=== PATIENT | male | born 1980 | race Caucasian/White ===

== ENCOUNTER → 2022-01-05 | Outpatient (CLI) | payer OTHER | LOC: M CLY 11:14 | PROVIDERS: ATTEND Nurse Practitioner Family | DX: M54.2 Cervicalgia (principal) ==

== ENCOUNTER → 2022-01-05 | Outpatient (CLI) | payer OTHER | LOC: M CLY 11:26 | PROVIDERS: ATTEND Nurse Practitioner Family | DX: Z53.9 Procedure and treatment not carried out, unspecified reason (principal) ==

== ENCOUNTER → 2022-01-05 | Outpatient (CLI) | payer OTHER ==
[2022-01-05 16:13] LABS: HEMATOCRIT 45.3 % (42.0-52.0); HEMOGLOBIN 15.7 g/dl (13.5-17.5); MEAN CORPUSCULAR HGB CONC 34.7 g/dl (32.0-36.5); MEAN CORPUSCULAR VOLUME 86.5 fl (80.0-96.0); PLATELET COUNT, AUTOMATED 240 10^3/uL (150-450); RED BLOOD COUNT 5.24 10^6/uL (4.30-6.10); WHITE BLOOD COUNT 5.2 10^3/uL (4.0-10.0)
[2022-01-05 16:34] LABS: ALBUMIN 4.4 GM/DL (3.2-5.2); ALT/SGPT 31 U/L (12-78); BILIRUBIN,TOTAL 0.5 MG/DL (0.2-1.0); BLOOD UREA NITROGEN 13 MG/DL (7-18); CALCIUM LEVEL 9.3 MG/DL (8.5-10.1); CARBON DIOXIDE LEVEL 33 MEQ/L (21-32); CHLORIDE LEVEL 104 MEQ/L (98-107); CHOLESTEROL LEVEL 151 MG/DL (<200); CHOLESTEROL RISK RATIO 2.649 (<5); CREATININE FOR GFR 0.98 MG/DL (0.70-1.30); GLOMERULAR FILTRATION RATE > 60.0 (>60); GLUCOSE, FASTING 91 MG/DL (70-100); HDL CHOLESTEROL 57 MG/DL (>40); LDL CHOLESTEROL 78 MG/DL (<100); NON-HDL-C 94 MG/DL; POTASSIUM SERUM 4.5 MEQ/L (3.5-5.1); SODIUM LEVEL 139 MEQ/L (136-145); TOTAL PROTEIN 7.7 GM/DL (6.4-8.2); TRIGLYCERIDES LEVEL 79 MG/DL (<150)
[2022-01-05 16:46] LABS: HEMOGLOBIN A1c 5.4 %
== END ==
LOC: M CLY 10:43 → M LABDRAWC 10:45
PROVIDERS: ATTEND Nurse Practitioner Family
DX: M54.2 Cervicalgia (principal)

== ENCOUNTER → 2022-01-19 | Outpatient (CLI) | payer OTHER | LOC: M SOG 08:09 | PROVIDERS: ATTEND Physician Assistant | DX: M79.641 Pain in right hand (principal); M79.642 Pain in left hand ==

== ENCOUNTER → 2022-02-07 | Outpatient (CLI) | payer OTHER ==
[~2022-02-07] MED LIST: ZYRTTAB8 PO
== END ==
LOC: M CLY 11:21
PROVIDERS: ATTEND Physician Assistant
DX: N20.0 Calculus of kidney (principal)

== ENCOUNTER → 2022-02-17 | Outpatient (CLI) | payer OTHER | LOC: M LABSMTC 11:24 | PROVIDERS: ATTEND Anesthesiology | DX: Z01.812 Encounter for preprocedural laboratory examination (principal); Z20.822 Contact with and (suspected) exposure to COVID-19 ==

== ENCOUNTER → 2022-02-23 | Outpatient (CLI) | payer OTHER | LOC: M LABSMTC 11:26 | PROVIDERS: ATTEND Anesthesiology | DX: Z01.818 Encounter for other preprocedural examination (principal); Z11.52 Encounter for screening for COVID-19 ==

== ENCOUNTER 2022-02-24 06:09 | Day surgery (SDC) | payer OTHER ==
[~2022-02-24] VITALS: Ht 149.9 cm; Wt 78.5 kg
[~2022-02-24 06:09] MED LIST changes: +LIDOCAINE W/EPINEPHRINE 1% 20ML VIAL XX ONE; +SODIUM BICARBONATE 8.4% INJ 50MEQ 50 ML VIAL XX ONE
[2022-02-24] MEDS ORDERED: BACITRACIN OINTMENT 30GM TUBE As Ordered ONE (07:11)
[2022-02-24 07:55] VITALS: BP 151/76
== END 2022-02-24 08:15 | disposition home or self-care (01) ==
LOC: M SDC 06:09
PROVIDERS: ATTEND Orthopaedic Surgery Hand Surgery
DX: M65.331 Trigger finger, right middle finger (principal); Z88.1 Allergy status to other antibiotic agents; Z91.018 Allergy to other foods

== ENCOUNTER → 2022-03-30 | Outpatient (CLI) | payer OTHER ==
[~2022-03-30] MED LIST changes: -LIDOCAINE W/EPINEPHRINE 1% 20ML VIAL XX ONE; -SODIUM BICARBONATE 8.4% INJ 50MEQ 50 ML VIAL XX ONE
== END ==
LOC: M PLAIMG 12:25
PROVIDERS: ATTEND Orthopaedic Surgery
DX: M54.2 Cervicalgia (principal)

== ENCOUNTER → 2022-04-13 | Outpatient (CLI) | payer OTHER ==
[2022-04-13 15:45] LABS: BLOOD UREA NITROGEN 15 MG/DL (7-18); CREATININE FOR GFR 0.98 MG/DL (0.70-1.30); GLOMERULAR FILTRATION RATE > 60.0 (>60)
== END ==
LOC: M LAB 14:57
PROVIDERS: ATTEND Orthopaedic Surgery
DX: G95.89 Other specified diseases of spinal cord (principal)

== ENCOUNTER → 2022-05-03 | Outpatient (REF) | payer OTHER | LOC: M SMT 11:10 | PROVIDERS: ATTEND Urology | DX: Z30.2 Encounter for sterilization (principal) ==

== ENCOUNTER → 2022-06-14 | Outpatient (REF) | payer OTHER | LOC: M SMT 16:41 | PROVIDERS: ATTEND Physician Assistant | DX: Z87.442 Personal history of urinary calculi (principal) ==

== ENCOUNTER → 2022-06-20 | Outpatient (CLI) | payer OTHER ==
[~2022-06-20] MED LIST changes: +PROHANCE 279.3MG/ML 15ML VIAL As Ordered ONE
== END ==
LOC: M RAD 12:42
PROVIDERS: ATTEND Orthopaedic Surgery
DX: G95.89 Other specified diseases of spinal cord (principal); M50.30 Other cervical disc degeneration, unspecified cervical region; M50.20 Other cervical disc displacement, unspecified cervical region
CPT/HCPCS: 72156; A9576

== ENCOUNTER → 2022-06-26 | Outpatient (REF) | payer OTHER ==
[~2022-06-26] MED LIST changes: -PROHANCE 279.3MG/ML 15ML VIAL As Ordered ONE
[2022-06-26 17:23] LABS: BASO % 0.4 % (0.0-1.0); EOS # 0.1 10^3/uL (0.0-0.5); EOS % 0.9 % (0.0-3.0); HEMOGLOBIN 14.7 g/dl (13.5-17.5); LYMPH % 14.5 % (24.0-44.0); MEAN CORPUSCULAR HEMOGLOBIN 30.4 pg (27.0-33.0); MEAN CORPUSCULAR HGB CONC 34.2 g/dl (32.0-36.5); MONO # 0.9 10^3/uL (0.0-0.8); MONO % 12.6 % (2.0-8.0); NEUTROPHILS # 4.9 10^3/uL (1.5-8.5); NEUTROPHILS % 71.3 % (36.0-66.0); PLATELET COUNT, AUTOMATED 212 10^3/uL (150-450); RED BLOOD COUNT 4.83 10^6/uL (4.30-6.10); WHITE BLOOD COUNT 6.9 10^3/uL (4.0-10.0)
[2022-06-26 17:35] LABS: ALBUMIN 4.1 GM/DL (3.2-5.2); ALT/SGPT 56 U/L (12-78); BILIRUBIN,TOTAL 0.7 MG/DL (0.2-1.0); BLOOD UREA NITROGEN 12 MG/DL (7-18); CALCIUM LEVEL 9.4 MG/DL (8.5-10.1); CARBON DIOXIDE LEVEL 25 MEQ/L (21-32); CHLORIDE LEVEL 105 MEQ/L (98-107); CREATININE FOR GFR 0.95 MG/DL (0.70-1.30); GLOMERULAR FILTRATION RATE > 60.0 (>60); GLUCOSE, FASTING 97 MG/DL (70-100); POTASSIUM SERUM 4.1 MEQ/L (3.5-5.1); SODIUM LEVEL 136 MEQ/L (136-145); TOTAL PROTEIN 7.5 GM/DL (6.4-8.2)
== END ==
LOC: M SFHCCLAY 10:07
PROVIDERS: ATTEND Nurse Practitioner Family
DX: L02.31 Cutaneous abscess of buttock (principal)

== ENCOUNTER → 2022-07-04 | Outpatient (REF) | payer OTHER ==
[2022-07-04 13:34] LABS: SEMEN APPEARANCE OPAQUE (OPAQUE); SEMEN VISCOSITY LIQUID (LIQUID); SEMEN VOLUME 1.5 ml (2.0-5.0)
[2022-07-04 13:35] LABS: WBC CONCENTRATION >1 M/ml (<=1 M/ml)
== END ==
LOC: M SMT 12:53
PROVIDERS: ATTEND Urology
DX: Z30.8 Encounter for other contraceptive management (principal)

== ENCOUNTER → 2022-07-17 | Outpatient (REF) | payer OTHER ==
[2022-07-17 16:15] LABS: APPEARANCE, URINE MANUAL HAZY (CLEAR); COLOR, URINE MANUAL COLORLESS (YELLOW)
[2022-07-17 16:16] LABS: BILIRUBIN, URINE MANUAL NEGATIVE (NEGATIVE); BLOOD URINE MANUAL POSITIVE (NEGATIVE); GLUCOSE, URINE (UA) MANUAL NEGATIVE (NEGATIVE); KETONE, URINE MANUAL NEGATIVE (NEGATIVE); LEUKOCYTE ESTERASE, URINE MAN POSITIVE (NEGATIVE); NITRITE, URINE MANUAL NEGATIVE (NEGATIVE); PROTEIN, URINE MANUAL TRACE mg/dL (NEGATIVE); UROBILINOGEN, URINE MANUAL NORMAL (NORMAL)
[2022-07-17 17:05] LABS: WBC, URINE TNTC /hpf (0-3)
[2022-07-17 17:06] LABS: BACTERIA, URINE LARGE AMOUNT; HYALINE CAST, URINE NONE SEEN /lpf (0-1); SQUAMOUS EPITHELIAL CELL URINE NONE SEEN /hpf (SMALL AMT)
== END ==
LOC: M SMT 15:16
PROVIDERS: ATTEND Physician Assistant
DX: R30.0 Dysuria (principal)

== ENCOUNTER → 2022-07-27 | Outpatient (CLI) | payer OTHER ==
[~2022-07-27] MED LIST changes: +ISOVUE-370 76% 100ML VIAL As Ordered ONE
== END ==
LOC: M RAD 12:35
PROVIDERS: ATTEND Nurse Practitioner Family
DX: R91.1 Solitary pulmonary nodule (principal)
CPT/HCPCS: 71260; Q9967

== ENCOUNTER → 2022-08-17 | Outpatient (CLI) | payer OTHER ==
[~2022-08-17] MED LIST changes: -ISOVUE-370 76% 100ML VIAL As Ordered ONE
== END ==
LOC: M SOG 15:13
PROVIDERS: ATTEND Orthopaedic Surgery
DX: M54.50 Low back pain, unspecified (principal)

== ENCOUNTER → 2022-08-29 | Outpatient (CLI) | payer OTHER ==
[~2022-08-29] MED LIST changes: +ISOVUE-370 76% 100ML VIAL As Ordered ONE
== END ==
LOC: M RAD 15:06
PROVIDERS: ATTEND Physician Assistant
DX: N39.0 Urinary tract infection, site not specified (principal)
CPT/HCPCS: 74178; Q9967

== ENCOUNTER → 2022-09-07 | Outpatient (CLI) | payer OTHER ==
[~2022-09-07] MED LIST changes: -ISOVUE-370 76% 100ML VIAL As Ordered ONE
== END ==
LOC: M PLAIMG 10:34
PROVIDERS: ATTEND Orthopaedic Surgery
DX: M47.816 Spondylosis without myelopathy or radiculopathy, lumbar region (principal)

== ENCOUNTER → 2022-11-08 | Outpatient (REF) | payer OTHER ==
[2022-11-08 17:24] LABS: HEMATOCRIT 42.3 % (42.0-52.0); HEMOGLOBIN 14.3 g/dl (13.5-17.5); MEAN CORPUSCULAR HGB CONC 33.8 g/dl (32.0-36.5); MEAN CORPUSCULAR VOLUME 88.7 fl (80.0-96.0); PLATELET COUNT, AUTOMATED 314 10^3/uL (150-450); RED BLOOD COUNT 4.77 10^6/uL (4.30-6.10); WHITE BLOOD COUNT 12.7 10^3/uL (4.0-10.0)
[2022-11-08 17:56] LABS: ALBUMIN 4.1 G/DL (3.2-5.2); ALKALINE PHOSPHATASE 69 U/L (46-116); ALT/SGPT 28 U/L (7.0-40); AST/SGOT 17 U/L (<34); BILIRUBIN,TOTAL 0.7 MG/DL (0.3-1.2); BLOOD UREA NITROGEN 16 MG/DL (9-23); CALCIUM LEVEL 9.3 MG/DL (8.5-10.1); CARBON DIOXIDE LEVEL 30 MMOL/L (20-31); CHLORIDE LEVEL 102 MMOL/L (98-107); CHOLESTEROL LEVEL 146 MG/DL (<200); GLOMERULAR FILTRATION RATE > 60.0 (>60); GLUCOSE, FASTING 90 MG/DL (60-100); HDL CHOLESTEROL 45.5 MG/DL (>40); LDL CHOLESTEROL 80.9 MG/DL (<100); NON-HDL-C 101 MG/DL; POTASSIUM SERUM 4.3 MMOL/L (3.5-5.1); SODIUM LEVEL 138 MMOL/L (136-145); TRIGLYCERIDES LEVEL 98 MG/DL (<150)
[2022-11-08 18:57] LABS: APPEARANCE, URINE MANUAL CLEAR (CLEAR); BILIRUBIN, URINE MANUAL NEGATIVE (NEGATIVE); BLOOD URINE MANUAL NEGATIVE (NEGATIVE); COLOR, URINE MANUAL COLORLESS (YELLOW); GLUCOSE, URINE (UA) MANUAL NEGATIVE (NEGATIVE); KETONE, URINE MANUAL NEGATIVE (NEGATIVE); LEUKOCYTE ESTERASE, URINE MAN POSITIVE (NEGATIVE); NITRITE, URINE MANUAL NEGATIVE (NEGATIVE); PROTEIN, URINE MANUAL NEGATIVE (NEGATIVE); SPECIFIC GRAVITY,URINE MANUAL 1.005 (1.002-1.035); UROBILINOGEN, URINE MANUAL NORMAL (NORMAL)
[2022-11-08 19:15] LABS: BACTERIA, URINE NONE SEEN; HYALINE CAST, URINE NONE SEEN /lpf (0-1); RBC, URINE NONE SEEN /hpf (0-3); SQUAMOUS EPITHELIAL CELL URINE NONE SEEN /hpf (SMALL AMT); WBC, URINE 0-1 /hpf (0-3)
== END ==
LOC: M SFHCCLAY 11:12
PROVIDERS: ATTEND Physician Assistant
DX: R30.0 Dysuria (principal)

== ENCOUNTER → 2023-01-11 | Outpatient (CLI) | payer OTHER | LOC: M PLAIMG 13:26 | PROVIDERS: ATTEND Internal Medicine Pulmonary Disease | DX: R91.8 Other nonspecific abnormal finding of lung field (principal) ==

== ENCOUNTER → 2023-01-29 | Outpatient (REF) | payer OTHER ==
[2023-01-29 21:04] LABS: APPEARANCE, URINE CLEAR (CLEAR); BACTERIA, URINE AUTO 1+ (NEGATIVE); BILIRUBIN, URINE AUTO NEGATIVE (NEGATIVE); BLOOD, URINE BLOOD 1+ (NEGATIVE); COLOR, URINE STRAW (YELLOW); GLUCOSE, URINE (UA) AUTO NEGATIVE (NEGATIVE); KETONE, URINE AUTO NEGATIVE (NEGATIVE); LEUKOCYTE ESTERASE, URINE AUTO 2+ (NEGATIVE); NITRITE, URINE AUTO NEGATIVE (NEGATIVE); PROTEIN, URINE AUTO NEGATIVE (NEGATIVE); RBC, URINE AUTO 2 /HPF (0-3); SPECIFIC GRAVITY URINE AUTO 1.005 (1.002-1.035); SQUAMOUS EPITHELIAL CELL UR AU 0 /HPF (0-6); UROBILINOGEN, URINE AUTO 0.2 mg/dL (0.0-2.0); WBC, URINE AUTO 5 /HPF (0-3)
== END ==
LOC: M SMT 18:09
PROVIDERS: ATTEND Physician Assistant
DX: R30.0 Dysuria (principal)

== ENCOUNTER → 2023-03-09 | Outpatient (REF) | payer OTHER ==
[2023-03-09 18:23] LABS: APPEARANCE, URINE CLEAR (CLEAR); BACTERIA, URINE AUTO NEGATIVE (NEGATIVE); BILIRUBIN, URINE AUTO NEGATIVE (NEGATIVE); BLOOD, URINE BLOOD NEGATIVE (NEGATIVE); COLOR, URINE STRAW (YELLOW); GLUCOSE, URINE (UA) AUTO NEGATIVE (NEGATIVE); KETONE, URINE AUTO NEGATIVE (NEGATIVE); LEUKOCYTE ESTERASE, URINE AUTO TRACE (NEGATIVE); NITRITE, URINE AUTO NEGATIVE (NEGATIVE); PROTEIN, URINE AUTO NEGATIVE (NEGATIVE); RBC, URINE AUTO 0 /HPF (0-3); SPECIFIC GRAVITY URINE AUTO 1.005 (1.002-1.035); SQUAMOUS EPITHELIAL CELL UR AU 0 /HPF (0-6); UROBILINOGEN, URINE AUTO 0.2 mg/dL (0.0-2.0); WBC, URINE AUTO 2 /HPF (0-3)
== END ==
LOC: M SMT 17:16
PROVIDERS: ATTEND Urology
DX: N39.0 Urinary tract infection, site not specified (principal)

== ENCOUNTER → 2023-03-15 | Outpatient (CLI) | payer OTHER | LOC: M PLAIMG 14:15 | PROVIDERS: ATTEND Orthopaedic Surgery | DX: M54.12 Radiculopathy, cervical region (principal); G95.89 Other specified diseases of spinal cord ==

== ENCOUNTER → 2023-04-27 | Outpatient (REF) | payer OTHER ==
[2023-04-27 18:16] LABS: HEMOGLOBIN A1c 5.2 % (4.0-6.0)
[2023-04-27 18:20] LABS: FOLATE 16.1 NG/ML (>5.4); THYROID STIMULATING HORMONE 1.862 uIU/ML (0.55-4.78)
== END ==
LOC: M SFHCCLAY 09:47
PROVIDERS: ATTEND Physician Assistant Medical
DX: R20.2 Paresthesia of skin (principal)

== ENCOUNTER → 2023-08-07 | Outpatient (CLI) | payer OTHER | LOC: M CLY 12:02 | PROVIDERS: ATTEND Family Medicine | DX: R10.9 Unspecified abdominal pain (principal) ==

== ENCOUNTER → 2023-08-07 | Outpatient (REF) | payer OTHER ==
[2023-08-07 18:52] LABS: HEMATOCRIT 42.5 % (42.0-52.0); HEMOGLOBIN 14.6 g/dl (13.5-17.5); MEAN CORPUSCULAR HEMOGLOBIN 30.4 pg (27.0-33.0); MEAN CORPUSCULAR HGB CONC 34.4 g/dl (32.0-36.5); MEAN CORPUSCULAR VOLUME 88.5 fl (80.0-96.0); PLATELET COUNT, AUTOMATED 254 10^3/uL (150-450); WHITE BLOOD COUNT 8.5 10^3/uL (4.0-10.0)
[2023-08-07 19:20] LABS: LIPASE 43 U/L (12-53)
[2023-08-07 19:21] LABS: AMYLASE 53 U/L (30-118)
[2023-08-07 19:22] LABS: ALBUMIN 4.4 G/DL (3.2-5.2); ALKALINE PHOSPHATASE 70 U/L (46-116); ALT/SGPT 38 U/L (7.0-40); AST/SGOT 21 U/L (<34); BILIRUBIN,TOTAL 0.6 MG/DL (0.3-1.2); BLOOD UREA NITROGEN 15 MG/DL (9-23); CALCIUM LEVEL 9.3 MG/DL (8.5-10.1); CARBON DIOXIDE LEVEL 28 MMOL/L (20-31); CHLORIDE LEVEL 105 MMOL/L (98-107); CREATININE FOR GFR 0.93 MG/DL (0.70-1.30); GLOMERULAR FILTRATION RATE > 60.0 (>60); GLUCOSE, FASTING 81 MG/DL (60-100); POTASSIUM SERUM 4.6 MMOL/L (3.5-5.1); SODIUM LEVEL 142 MMOL/L (136-145); TOTAL PROTEIN 7.4 G/DL (5.7-8.2)
== END ==
LOC: M SFHCCLAY 11:54
PROVIDERS: ATTEND Family Medicine
DX: R10.13 Epigastric pain (principal)

== ENCOUNTER → 2023-08-24 | Outpatient (CLI) | payer OTHER | LOC: M CLY 10:31 | PROVIDERS: ATTEND Internal Medicine Pulmonary Disease | DX: R91.8 Other nonspecific abnormal finding of lung field (principal) ==

== ENCOUNTER → 2023-09-18 | Outpatient (CLI) | payer OTHER ==
[~2023-09-18] MED LIST changes: +OMEP-173 PO
== END ==
LOC: M CARPUL 10:32
PROVIDERS: ATTEND Internal Medicine Pulmonary Disease
DX: R06.00 Dyspnea, unspecified (principal)

== ENCOUNTER 2023-11-27 12:47 | Day surgery (SDC) | payer OTHER ==
[~2023-11-27] VITALS: Ht 149.9 cm; Wt 79.3 kg
[~2023-11-27 12:47] MED LIST changes: +CETI-24 PO; +NS 1,000 ML IV ONE
[2023-11-27] MEDS ORDERED: propofoL 200 MG/20 ML VIAL As Ordered ONE ×2 (14:42→14:50)
[2023-11-27] MEDS ORDERED: LIDOCAINE 2% 100MG/5ML SDV (FOR ANES.) As Ordered ONE (14:42)
[2023-11-27 15:07] VITALS: TEMP 97.7
[2023-11-27 15:13] VITALS: BP 135/89; O2SAT 98
== END 2023-11-27 15:19 | disposition home or self-care (01) ==
LOC: M OPP 12:47
PROVIDERS: ATTEND Internal Medicine Gastroenterology
DX: K21.9 Gastro-esophageal reflux disease without esophagitis (principal); R12 Heartburn; G47.30 Sleep apnea, unspecified; Z99.89 Dependence on other enabling machines and devices; Z79.52 Long term (current) use of systemic steroids; Z79.899 Other long term (current) drug therapy

== ENCOUNTER → 2024-02-05 | Outpatient (CLI) | payer OTHER ==
[~2024-02-05] MED LIST changes: -NS 1,000 ML IV ONE
== END ==
LOC: M RAD 13:04
PROVIDERS: ATTEND Internal Medicine Pulmonary Disease
DX: R94.2 Abnormal results of pulmonary function studies (principal)

== ENCOUNTER → 2024-02-07 | Outpatient (REF) | payer OTHER ==
[2024-02-07 17:13] LABS: APPEARANCE, URINE CLEAR (CLEAR); BACTERIA, URINE AUTO NEGATIVE (NEGATIVE); BILIRUBIN, URINE AUTO NEGATIVE (NEGATIVE); BLOOD, URINE BLOOD 1+ (NEGATIVE); COLOR, URINE YELLOW (YELLOW); GLUCOSE, URINE (UA) AUTO NEGATIVE (NEGATIVE); KETONE, URINE AUTO NEGATIVE (NEGATIVE); LEUKOCYTE ESTERASE, URINE AUTO NEGATIVE (NEGATIVE); MUCUS, URINE SMALL (NEGATIVE); NITRITE, URINE AUTO NEGATIVE (NEGATIVE); PROTEIN, URINE AUTO NEGATIVE (NEGATIVE); RBC, URINE AUTO 1 /HPF (0-3); SPECIFIC GRAVITY URINE AUTO 1.016 (1.002-1.035); SQUAMOUS EPITHELIAL CELL UR AU 0 /HPF (0-6); UROBILINOGEN, URINE AUTO 0.2 mg/dL (0.0-2.0); WBC, URINE AUTO 1 /HPF (0-3)
== END ==
LOC: M SFHCCLAY 12:59
PROVIDERS: ATTEND Physician Assistant
DX: R30.0 Dysuria (principal)

== ENCOUNTER → 2024-08-07 | Outpatient (CLI) | payer OTHER | LOC: M SOG 07:31 | PROVIDERS: ATTEND Orthopaedic Surgery | DX: M54.2 Cervicalgia (principal) ==

== ENCOUNTER → 2024-08-08 | Outpatient (CLI) | payer OTHER | LOC: M SOG 07:53 | PROVIDERS: ATTEND Orthopaedic Surgery | DX: M54.2 Cervicalgia (principal) ==

== ENCOUNTER → 2024-08-22 | Outpatient (CLI) | payer OTHER | LOC: M PLARAD 11:02 | PROVIDERS: ATTEND Orthopaedic Surgery | DX: G95.89 Other specified diseases of spinal cord (principal); M54.12 Radiculopathy, cervical region; M47.812 Spondylosis without myelopathy or radiculopathy, cervical region; M50.222 Other cervical disc displacement at C5-C6 level; M50.31 Other cervical disc degeneration, high cervical region; M50.321 Other cervical disc degeneration at C4-C5 level ==

== ENCOUNTER → 2024-12-23 | Outpatient (REF) | payer OTHER ==
[2024-12-23 18:05] LABS: APPEARANCE, URINE CLEAR (CLEAR); BACTERIA, URINE AUTO NEGATIVE (NEGATIVE); BILIRUBIN, URINE AUTO NEGATIVE (NEGATIVE); BLOOD, URINE BLOOD NEGATIVE (NEGATIVE); COLOR, URINE STRAW (YELLOW); GLUCOSE, URINE (UA) AUTO NEGATIVE (NEGATIVE); KETONE, URINE AUTO NEGATIVE (NEGATIVE); LEUKOCYTE ESTERASE, URINE AUTO NEGATIVE (NEGATIVE); NITRITE, URINE AUTO NEGATIVE (NEGATIVE); PROTEIN, URINE AUTO NEGATIVE (NEGATIVE); RBC, URINE AUTO 0 /HPF (0-3); SPECIFIC GRAVITY URINE AUTO 1.003 (1.002-1.035); SQUAMOUS EPITHELIAL CELL UR AU 0 /HPF (0-6); UROBILINOGEN, URINE AUTO 0.2 mg/dL (0.0-2.0); WBC, URINE AUTO 1 /HPF (0-3)
== END ==
LOC: M SMT 17:17
PROVIDERS: ATTEND Physician Assistant
DX: N50.811 Right testicular pain (principal)

== ENCOUNTER → 2025-01-09 | Outpatient (REF) | payer OTHER ==
[2025-01-09 17:44] LABS: ALBUMIN 4.5 G/DL (3.2-5.2); ALKALINE PHOSPHATASE 77 U/L (40-129); ALT/SGPT 32 U/L (7.0-40); AST/SGOT 14 U/L (<34); BILIRUBIN,TOTAL 0.7 MG/DL (0.3-1.2); BLOOD UREA NITROGEN 15 MG/DL (9-23); CALCIUM LEVEL 9.2 MG/DL (8.5-10.1); CARBON DIOXIDE LEVEL 26 MMOL/L (20-31); CHLORIDE LEVEL 104 MMOL/L (98-107); CHOLESTEROL LEVEL 157 MG/DL (<200); CHOLESTEROL RISK RATIO 2.62 (<5); CREATININE FOR GFR 0.89 MG/DL (0.70-1.30); GLOMERULAR FILTRATION RATE > 60.0 (>60); GLUCOSE, FASTING 79 MG/DL (60-100); HDL CHOLESTEROL 59.9 MG/DL (>40); LDL CHOLESTEROL 83.5 MG/DL (<100); NON-HDL-C 97.1 MG/DL; POTASSIUM SERUM 4.5 MMOL/L (3.5-5.1); SODIUM LEVEL 141 MMOL/L (136-145); TOTAL PROTEIN 7.5 G/DL (5.7-8.2); TRIGLYCERIDES LEVEL 68 MG/DL (<150)
== END ==
LOC: M SFHCCLAY 13:09
PROVIDERS: ATTEND Nurse Practitioner Family
DX: Z00.00 Encounter for general adult medical examination without abnormal findings (principal); K21.9 Gastro-esophageal reflux disease without esophagitis; N50.811 Right testicular pain; M25.561 Pain in right knee; M25.562 Pain in left knee

== ENCOUNTER → 2025-03-03 | Outpatient (CLI) | payer OTHER | LOC: M PLAIMG 12:33 | PROVIDERS: ATTEND Internal Medicine Pulmonary Disease | DX: R91.8 Other nonspecific abnormal finding of lung field (principal) ==

== ENCOUNTER → 2025-08-10 | Outpatient (REF) | payer OTHER ==
[2025-08-10 17:31] LABS: APPEARANCE, URINE CLEAR (CLEAR); BACTERIA, URINE AUTO NEGATIVE (NEGATIVE); BILIRUBIN, URINE AUTO NEGATIVE (NEGATIVE); BLOOD, URINE BLOOD NEGATIVE (NEGATIVE); GLUCOSE, URINE (UA) AUTO NEGATIVE (NEGATIVE); KETONE, URINE AUTO NEGATIVE (NEGATIVE); LEUKOCYTE ESTERASE, URINE AUTO TRACE (NEGATIVE); MUCUS, URINE SMALL (NEGATIVE); NITRITE, URINE AUTO NEGATIVE (NEGATIVE); PROTEIN, URINE AUTO NEGATIVE (NEGATIVE); RBC, URINE AUTO 0 /HPF (0-3); SPECIFIC GRAVITY URINE AUTO 1.005 (1.002-1.035); SQUAMOUS EPITHELIAL CELL UR AU 0 /HPF (0-6); UROBILINOGEN, URINE AUTO 0.2 mg/dL (0.0-2.0); WBC, URINE AUTO 2 /HPF (0-3)
== END ==
LOC: M SFHCCLAY 10:25
PROVIDERS: ATTEND Physician Assistant
DX: R30.0 Dysuria (principal)

== ENCOUNTER → 2025-09-15 | Outpatient (CLI) | payer OTHER | LOC: M SOG 07:45 | PROVIDERS: ATTEND Orthopaedic Surgery | DX: M54.2 Cervicalgia (principal) ==